=== PATIENT | male | born 1945 | race Caucasian/White ===

== ENCOUNTER 2017-05-01 11:39 | Day surgery (SDC) | payer MEDICARE ==
[~2017-05-01] VITALS: Ht 180.3 cm; Wt 120.2 kg
[~2017-05-01 11:39] MED LIST: AMLODIPINE5 MG PO; AUGMENTIN875TAB PO; CHERATUSSIN OR; EQL IBUPROFEN200 MG PO; FLUTICASONE50 MCG; HYDROCHLOROT25 MG PO; LISINOPRIL10 MG PO; TENORMIN50 MG PO; TYLENOL325 MG PO
[2017-05-01 14:34] VITALS: BP 117/61
== END 2017-05-01 15:03 | disposition home or self-care (01) ==
LOC: ENDO 11:39
PROVIDERS: ATTEND Internal Medicine Gastroenterology
PROC: 0DBL8ZX Excision of Transverse Colon, Via Natural or Artificial Opening Endoscopic, Diagnostic (ICD-10-PCS; principal; 2017-05-01)
PROC: 0DBF8ZX Excision of Right Large Intestine, Via Natural or Artificial Opening Endoscopic, Diagnostic (ICD-10-PCS; 2017-05-01)
PROC: 0DBH8ZX Excision of Cecum, Via Natural or Artificial Opening Endoscopic, Diagnostic (ICD-10-PCS; 2017-05-01)
DX: Z12.11 Encounter for screening for malignant neoplasm of colon (principal); R11.0 Nausea; K64.4 Residual hemorrhoidal skin tags; K57.30 Diverticulosis of large intestine without perforation or abscess without bleeding; K64.8 Other hemorrhoids; D12.3 Benign neoplasm of transverse colon; D12.0 Benign neoplasm of cecum; D12.2 Benign neoplasm of ascending colon; K63.5 Polyp of colon; I10 Essential (primary) hypertension

== ENCOUNTER 2017-08-14 10:07 | Day surgery (SDC) | payer MEDICARE ==
[~2017-08-14] VITALS: Ht 180.3 cm; Wt 120.2 kg
== END 2017-08-14 12:41 | disposition home or self-care (01) ==
LOC: ORM 10:07 → ENDO 10:07 → ORM 10:30
PROVIDERS: ATTEND Internal Medicine Gastroenterology
DX: R11.0 Nausea (principal); Z53.8 Procedure and treatment not carried out for other reasons

== ENCOUNTER 2018-06-25 09:33 | Day surgery (SDC) | payer MEDICARE ==
[~2018-06-25] VITALS: Ht 180.3 cm; Wt 120.2 kg
[~2018-06-25 09:33] MED LIST changes: +AMLODIPINE10 MG PO; +COZAAR100 MG PO; +[UNRECOGNIZED DRUG - OTHER]
[2018-06-25 14:19] VITALS: BP 123/58
== END 2018-06-25 14:40 | disposition home or self-care (01) ==
LOC: ENDO 09:33 → ORM 12:50 → ENDO 13:00 → ORM 20:30
PROVIDERS: ATTEND Internal Medicine Gastroenterology
PROC: 0DBN8ZX Excision of Sigmoid Colon, Via Natural or Artificial Opening Endoscopic, Diagnostic (ICD-10-PCS; principal; 2018-06-25)
PROC: 0DBH8ZX Excision of Cecum, Via Natural or Artificial Opening Endoscopic, Diagnostic (ICD-10-PCS; 2018-06-25)
DX: K57.30 Diverticulosis of large intestine without perforation or abscess without bleeding (principal); D12.0 Benign neoplasm of cecum; K63.5 Polyp of colon; K64.4 Residual hemorrhoidal skin tags; K64.8 Other hemorrhoids; I10 Essential (primary) hypertension; Z86.010 Personal history of colon polyps

== ENCOUNTER 2019-12-29 | Emergency (ER) | payer MEDICARE ==
[2019-12-29 11:54] LABS: HEMATOCRIT 45.5 % (39.0-50.0); HEMOGLOBIN 15.1 g/dl (14.0-18.0); IMMATURE GRANULOCYTES 0.4 % (0.0-5.0); MEAN CORPUSCULAR HGB 28.2 pG CALC (26.0-32.0); MEAN CORPUSCULAR HGB CONC 33.2 g/L CALC (32.0-36.0); NEUT# 7.28 thou/uL (1.82-7.42); RED BLOOD COUNT 5.35 mill/uL (4.70-6.10); RED CELL DISTRI WIDTH 13.6 % (11.5-15.5)
[2019-12-29 12:01] LABS: BUN 13 mg/dL (8-23); BUN/CREATININE RATIO 21 (12-20 (CALC)); CHLORIDE 103 mmol/l (95-108); CREATININE 0.6 mg/dL (0.7-1.3); GFR > 60 ML/MIN (>=60 (CALC)); GFR FOR AFR.AMER. > 60 ML/MIN (>=60 (CALC)); POTASSIUM 4.3 mmol/l (3.5-5.1); SODIUM 136 mmol/l (137-146)
[2019-12-29 12:05] LABS: ANION GAP 14 (6-22 (CALC)); CARBON DIOXIDE 23 mmol/l (22-30)
[2019-12-29 12:49] LABS: URINE BILIRUBIN - DIPSTICK NEGATIVE (NEGATIVE); URINE BLOOD DIPSTICK LARGE (NEGATIVE); URINE COLOR RED; URINE GLUCOSE - DIPSTICK 100 mg/dL (NEGATIVE); URINE KETONE 15 mg/dL (NEGATIVE); URINE LEUK ESTERASE MODERATE (NEGATIVE); URINE NITRITE - DIPSTICK POSITIVE (Negative); URINE PH 8.5 (4.5-8.0); URINE PROTEIN - DIPSTICK >=300 mg/dL (NEG-TRACE); URINE SPECIFIC GRAVITY 1.015
[2019-12-29 12:50] LABS: URINE BACTERIA FEW hpf; URINE EPITHELIAL CELLS FEW EPI/hpf (0-FEW); URINE RBC TNTC RBC/hpf (0-5)
== END 2019-12-29 16:40 | disposition short-term general hospital (02) ==
PROVIDERS: Family Medicine
DX: N28.89 Other specified disorders of kidney and ureter (principal); N32.89 Other specified disorders of bladder; R31.9 Hematuria, unspecified; I10 Essential (primary) hypertension; R82.71 Bacteriuria

== ENCOUNTER 2021-03-22 09:33 | Emergency (ER) | payer MEDICARE, MEDICAID ==
[~2021-03-22] VITALS: Ht 119.4 cm; Wt 115.0 kg
[2021-03-22 11:13] LABS: HEMATOCRIT 43.2 % (39.0-50.0); HEMOGLOBIN 13.8 g/dl (14.0-18.0); MEAN CELL VOLUME 84.7 fL CALC (80.0-100.0); MEAN CORPUSCULAR HGB 27.1 pG CALC (26.0-32.0); MEAN CORPUSCULAR HGB CONC 31.9 g/dL CAL (32.0-36.0); NEUT# 20.32 thou/uL (1.82-7.42); RED BLOOD COUNT 5.1 mill/uL (4.70-6.10); RED CELL DISTRI WIDTH 14.2 % (11.5-15.5)
[2021-03-22 11:24] LABS: INTERNATIONAL NORMALIZED RATIO 1.2 RATIO (0.7-1.3); PROTHROMBIN TIME 12.6 SECONDS (9.0-12.5)
[2021-03-22 11:26] LABS: ALBUMIN 3.8 g/dL (3.2-5.0); ALKALINE PHOSPHATASE 44 u/l (38-126); ANION GAP 10 (6-22 (CALC)); BILIRUBIN, TOTAL 1.3 mg/dL (0.0-1.4); BUN 26 mg/dL (8-23); BUN/CREATININE RATIO 28 (12-20 (CALC)); CARBON DIOXIDE 28 mmol/l (22-30); CHLORIDE 98 mmol/l (95-108); CREATININE 0.9 mg/dL (0.7-1.3); GFR > 60 ML/MIN (>=60 (CALC)); GFR FOR AFR.AMER. > 60 ML/MIN (>=60 (CALC)); POTASSIUM 4.9 mmol/l (3.5-5.1); SGOT/AST 39 u/l (19-48); SODIUM 131 mmol/l (137-146); TOTAL PROTEIN 7.7 g/dL (6.3-8.2)
[2021-03-22 11:38] LABS: MYOGLOBIN 88 ng/mL (0 - 121)
[2021-03-22 12:18] VITALS: BP 130/62
== END 2021-03-22 11:55 | disposition short-term general hospital (02) ==
LOC: ED 09:33
PROVIDERS: Emergency Medicine
DX: I21.9 Acute myocardial infarction, unspecified (principal); J18.9 Pneumonia, unspecified organism; I10 Essential (primary) hypertension; C64.9 Malignant neoplasm of unspecified kidney, except renal pelvis; C79.9 Secondary malignant neoplasm of unspecified site; C67.9 Malignant neoplasm of bladder, unspecified; F17.200 Nicotine dependence, unspecified, uncomplicated; Z20.822 Contact with and (suspected) exposure to COVID-19; Z79.899 Other long term (current) drug therapy

== ENCOUNTER 2021-04-04 09:51 | Inpatient (IN) | payer MEDICARE, MEDICAID ==
[~2021-04-04] VITALS: Ht 180.3 cm; Wt 108.0 kg
[2021-04-04] VITALS (14 sets, daily range): BP systolic 134–168; BP diastolic 61–83
--- NOTE | 2021-04-04 09:52 | NUR ---
PT IMMEDIATELY TO ROOM VIA MD YOMI AT BEDSIDE.
[2021-04-04 10:30] LABS: HEMATOCRIT 44.8 % (39.0-50.0); HEMOGLOBIN 14.7 g/dl (14.0-18.0); IMMATURE GRANULOCYTES 0.3 % (0.0-5.0); MEAN CORPUSCULAR HGB 27.2 pG CALC (26.0-32.0); MEAN CORPUSCULAR HGB CONC 32.8 g/dL CAL (32.0-36.0); NEUT# 12.12 thou/uL (1.82-7.42); RED BLOOD COUNT 5.4 mill/uL (4.70-6.10); RED CELL DISTRI WIDTH 14.3 % (11.5-15.5)
[2021-04-04 10:39] LABS: INTERNATIONAL NORMALIZED RATIO 1.2 RATIO (0.7-1.3)
[2021-04-04 10:40] LABS: ALBUMIN 3.7 g/dL (3.2-5.0); ANION GAP 13 (6-22 (CALC)); BUN 10 mg/dL (8-23); BUN/CREATININE RATIO 17 (12-20 (CALC)); CARBON DIOXIDE 28 mmol/l (22-30); CHLORIDE 98 mmol/l (95-108); CREATININE 0.6 mg/dL (0.7-1.3); GFR > 60 ML/MIN (>=60 (CALC)); GFR FOR AFR.AMER. > 60 ML/MIN (>=60 (CALC)); POTASSIUM 4.2 mmol/l (3.5-5.1); SGOT/AST 32 u/l (19-48); SODIUM 135 mmol/l (137-146); TOTAL PROTEIN 7.7 g/dL (6.3-8.2)
[2021-04-04 10:42] LABS: ALKALINE PHOSPHATASE 72 u/l (38-126)
--- NOTE | 2021-04-04 10:48 | NUR ---
RESTING ON STRETCHER. CALL DAWSON WITHIN REACH
[2021-04-04 11:38] LABS: URINE BILIRUBIN - DIPSTICK NEGATIVE (NEGATIVE); URINE BLOOD DIPSTICK NEGATIVE (NEGATIVE); URINE COLOR YELLOW; URINE GLUCOSE - DIPSTICK NEGATIVE (NEGATIVE); URINE KETONE NEGATIVE (NEGATIVE); URINE LEUK ESTERASE NEGATIVE (NEGATIVE); URINE PROTEIN - DIPSTICK NEGATIVE (NEG-TRACE); URINE SPECIFIC GRAVITY 1.015; URINE UROBILINOGEN - DIPSTICK 0.2 E.U./dL (0.2)
[2021-04-04 11:39] LABS: URINE NITRITE - DIPSTICK NEGATIVE (Negative)
--- NOTE | 2021-04-04 11:47 | NUR ---
RESTING ON STRETCHER. VOIDED 675ML TOTAL IN URINAL
[2021-04-04] MEDS ORDERED: DIGOXIN0.125 MG PO (12:27)
[2021-04-04] MEDS ORDERED: TAMSULOSIN HCL0.4 MG PO (12:28)
[2021-04-04] MEDS ORDERED: LOPRESSOR25 MG PO (12:28)
[2021-04-04] MEDS ORDERED: FUROSEMIDE20 MG PO (12:28)
[2021-04-04] MEDS ORDERED: DILT-XR180 MG PO (12:28)
--- NOTE | 2021-04-04 12:47 | NUR ---
RESTING ON STRETCHER. CALL DAWSON WITHIN REACH
--- NOTE | 2021-04-04 13:45 | NUR ---
S:EDGARDO RAMON is a 75 M who presents with SOB, cough, productive of green sputum. He has a history of CHF exacerbation, pneumonia, COPD exacerbation, Atrial fibrillatoin with RVR. All medications in patient's chart were reviewed. O: VS: BP 145/80 mmHg, P 134 bpm, RR 32 bpm, T 97.6 F W 113.6 kg, HT180.34 cm, Scr= 1 mL/min, CrCl= 99.4 ml/min A: Blood culture is pending. P: Patient is on Zosyn 4.5 g IV Q6H. Vancomycin ordered for pharmacy to dose. Start Vancomycin <1250 mg IV Q8H. Vancomycin trough is drawn before the 4th dose on 04/05/21 @1200. Vancomycin goal trough is between 15-20 mcg/ml. Pharmacy will follow and or advise on antibiotics use as needed.
--- NOTE | 2021-04-04 13:45 | NUR ---
AWAITING ROOM ASSIGNMENT. RESTING ON STRETCHER.
--- NOTE | 2021-04-04 13:55 | NUR ---
REPORT CALLED TO ANJALI DOWNEY
--- NOTE | 2021-04-04 14:00 | NUR ---
PT TRANSPORTED TO FLOOR IN STABLE CONDITION WITH RN ON GATEMAN
--- NOTE | 2021-04-04 14:00 | NUR ---
ARRIVED FROM THE ER VIA WHEELCHAIR. INTO BED WITH ASST OF THREE. DRIP RATE AT 10/H. VS 146/88 PL 114 97% 5L NC RESP 28 TEMP 98. AXOX3. DENIES ANY PAIN AT THIS TIME. NOTED PRODUCTIVE WET COUGH YELLOW IN COLOR. NOTED EDEMA TO BI-LAT LOWER EXTREMITIES. EDUCATED PHYSICAL CHEMIST SYSTEM BED AND TV. REPOSITIOEND FOR COMFORT, SIDE RAILS UP CALL LIGHT IN REACH, BED LOCKED IN LOW POSITION. ALL SAFTY MEASURES IN PLACE. WILL CONTINUE TO MONIOTR THE PATIENT.
--- NOTE | 2021-04-04 14:30 | NUR ---
PT GIVEN SUCTION TO HELP WITH HIS SECREATIONS. NO DISTRESS NOTED AT THIS TIME. CALL LIGHT IN REACH. WILL CONTINUE TO MONIOTR THE PATIENT.
--- NOTE | 2021-04-04 15:15 | NUR ---
pt recieved in icu via er on o2 self propelled mining machine operator placed in er as per abg results. 3lpm. pt resting comfortably in bed at this time. no acute distress noted. self propelled mining machine operator to monitor.
--- NOTE | 2021-04-04 16:12 | NUR ---
PT RESTING COMOFRTABLE VOIDING CLEAR YELLOW URINE. NOTED NO SOB AT THIS TIME. DENIES PAIN. WILL CONTINUE TO MONIOTR THE PATIENT.
--- NOTE | 2021-04-04 17:00 | NUR ---
HYGENE CARE GIVEN. NO DITRESS NOTED AT THIS TIME. WILL CONTINUE TO MONIOTR THE PATIENT.
--- NOTE | 2021-04-04 17:58 | NUR ---
COMPLETE HYGINE CARE GIVEN . NOTED HR RUNNING 118. PT NOT IN ANY DISTRESS AT THIS TIME. WILL CONTIUE OT MONIOTR THE PATIENT.
--- NOTE | 2021-04-04 19:30 | NUR ---
REPORT GIVEN BY SAHYAN. PATIENT IN BED WATCHING TV. RESP EVEN AND UNLABORED, 3L VIA NC IN PLACE. FALL AND SAFTEY PRECAUTIONS IN PLACE. IV INFUSING CARDIZEM. PLAN OF CARE DISCUSSED. PATIENT INFORMED TO CALL WITH ANY QUESTIONS OR CONCERNS.
--- NOTE | 2021-04-04 21:00 | NUR ---
PATIENT CALLED NURSES STATION STATING HE WAS UNABLE TO BREATHE. RESP LABORED AND SHALLOW, 3L VIA NC IN PLACE. O2 SAT 90%, O2 TURNED UP 5L FOR PATIENT COMFORT. PATIENT CONTIUNES TO SIT UP AT THE BEDSIDE TO CATCH BREATH. PATIENT EDUCATED ON PURSED LIPPED BREATHING.
--- NOTE | 2021-04-04 21:43 | NUR ---
PATIENT SITTING UP AT THE BEDSIDE. RESP EVEN AND UNLABORED. NO S/S OF DISTRESS NOTED. FALL AND SAFTEY PRECAUTIONS IN PLACE
[2021-04-05] VITALS (20 sets, daily range): BP systolic 125–187; BP diastolic 58–103
--- NOTE | 2021-04-05 00:11 | NUR ---
midnight abx started per md orders
--- NOTE | 2021-04-05 02:12 | NUR ---
PATIENT RESTING WITH EYES CLOSED. RESP EVEN AND UNLABORED. NO S/S OF DISTRESS NOTED.
--- NOTE | 2021-04-05 03:43 | NUR ---
PATIENT WOKE UP CONFUSED. HE REMOVED HIS IV SITE, GOWN, TELE, WRIST BAND, PULSE OX AND OXYGEN. NEW GOWN PLACED ON PATIENT. CLEAN LINENS PLACED ON BED. PATIENT REORIENTED TO ROOM, TIME, AND PLACE. PATIENT PLACED BACK ON MONITOR. FALL AND SAFTEY PRECAUTIONS IN PLACE.
[2021-04-05 06:31] LABS: HEMOGLOBIN 13.7 g/dl (14.0-18.0); MEAN CELL VOLUME 84.2 fL CALC (80.0-100.0); MEAN CORPUSCULAR HGB 27.5 pG CALC (26.0-32.0); MEAN CORPUSCULAR HGB CONC 32.6 g/dL CAL (32.0-36.0); RED BLOOD COUNT 4.99 mill/uL (4.70-6.10); RED CELL DISTRI WIDTH 14.2 % (11.5-15.5)
[2021-04-05 06:49] LABS: ANION GAP 11 (6-22 (CALC)); BUN 15 mg/dL (8-23); BUN/CREATININE RATIO 24 (12-20 (CALC)); CALCULATED LDLCHOLESTEROL 96 mg/dL (62-129 (CALC)); CARBON DIOXIDE 29 mmol/l (22-30); CHLORIDE 102 mmol/l (95-108); CHOLESTEROL HDL RATIO 3.9 (<4.4 (CALC)); CREATININE 0.6 mg/dL (0.7-1.3); GFR > 60 ML/MIN (>=60 (CALC)); GFR FOR AFR.AMER. > 60 ML/MIN (>=60 (CALC)); HDL CHOLESTEROL 38 mg/dL (>=40); MAGNESIUM 2.3 mg/dL (1.6-2.3); POTASSIUM 4.1 mmol/l (3.5-5.1); SODIUM 137 mmol/l (137-146); TOTAL CHOLESTEROL 151 mg/dl (0-199); TOTAL TRIGLYCERIDES 82 mg/dl (30-149); VLDL CHOLESTROL 16 mg/dl (0-38 (CALC))
--- NOTE | 2021-04-05 07:06 | NUR ---
PT C NAD. SPEAKING IN FULL SENTENCES. ON 5LPM NC C SPO2 =95. SOME PITTED EDEMA NOTED BILATERALLY. RN IN ROOM C PT. WATER PLANT OPERATOR TO MONITOR.
--- NOTE | 2021-04-05 07:15 | NUR ---
pt awake sitting on the side of the bed; no apparent distress noted; pt offers no complaints; assessment completed at this time; pt alert and oriented; interm confusion noted; pt denies pain/ discomfort; no n/v noted per credit underwriter; resp even and unlabored; lungs clear/ diminished bases; skin color wnl; o2 per nc at 5: moist loose cough noted; pt noted with self suctioning setup at bedside; hr irreg; wk pedal pulses; 2+ edema noted to ble; afib 110s on monitor; abd soft/ distended with bs present; no bm noted per credit underwriter; pt assisted to standing position per this credit underwriter to urinate; pt urinated on floor/ missed urinal; pericare/ gown changed per credit underwriter; no accidently dislodged IV approx 0630 this am per manager night; edema noted to rfa; arm cleansed of old blood; credit underwriter unable to establish iv access at this time; plan of care/ am meds explained; pt requires much assistance/ guidance; call light within reach; will continue to monitor
--- NOTE | 2021-04-05 08:17 | NUR ---
awake sitting on the side of the bed eating breakfast; Mahad Rebolledo RN present at bedside for iv access; #22 started to lat lac x1 attempt; flushed and patent; no redness or edema noted at site; call [facility] within reach; will continue to monitor
--- NOTE | 2021-04-05 08:45 | NUR ---
Dr Matt present at bedside to assess pt and discuss plan of care
--- NOTE | 2021-04-05 09:13 | NUR ---
PT present at bedside for screening
--- NOTE | 2021-04-05 09:40 | NUR ---
Patient screened for PT services, recommend initiating PT services.
--- NOTE | 2021-04-05 10:35 | NUR ---
PT Gerar present at bedside to assess pt
--- NOTE | 2021-04-05 12:07 | NUR ---
solder making laborer at bedside
--- NOTE | 2021-04-05 12:19 | NUR ---
awake in bed; pt self suctioning as needed; thick yellow sputum noted; iv intact and patent; abt infusing without complication; afib on monitor; rate controlled; call light within reach; will continue to monitor
--- NOTE | 2021-04-05 13:20 | NUR ---
assisted to bsc for urination; pt offers no complaints; no bm noted; pt offered stool softner or laxative and pt refused both; patient informed to notify staff if laxative is needed; iv patent; will continue to monitor
--- NOTE | 2021-04-05 14:09 | NUR ---
S: EDGARDO RAMON is a 75 M who presents with pneumonia/copd exacerbation. He has a history of COPD, CHF exacerbation, atrial fibrillation with RVR. All medications in patient's chart were reviewed. O: VS: BP 139/60 mmHg, P 108bpm, RR 26 bpm, T 97 F W 114 kg, HT 180.34 cm, Scr= 0.6 mL/min,CrCl= 79.4 ml/min Vancomycin trough=10 A: Preliminary Blood cultures show no growth after 24 hours. Vancomycin trough slightly subtherapeutic, however increase in trough expected. P: Patient is on Zosyn 4.5 g IV Q6H. Vancomycin ordered for pharmacy to dose. Continue Vancomycin 1250 mg IV Q8H. Vancomycin trough is to be rechecked on 04/06/21 @1200. Vancomycin goal trough is between 15-20 mcg/ml. Pharmacy will follow and or advise on antibiotics use as needed.
--- NOTE | 2021-04-05 14:15 | NUR ---
awake in bed; iv intact and patent; afib/flutter on monitor; o2 per nc; call light within reach; will continue to monitor
--- NOTE | 2021-04-05 16:10 | NUR ---
awake; assist to bsc; voiding without complication; afib on monitor; o2 per nc; pt offers no complaints; iv intact; call light within reach; will continue to monitor
--- NOTE | 2021-04-05 17:57 | NUR ---
awake sitting on the side of the bed; no apparent distress noted; pt offers no complaints; iv intact; o2 per nc; afib on the monitor; assistance to bedside offered; oral intake vs diuretics explained; explained to pt inportance of fluid restriction; call light within reach; will continue to monitor
--- NOTE | 2021-04-05 20:00 | NUR ---
RESTING IN BED. RESP NON-LABORED AT REST. USING O2 AT 5 L NC. BREATH SOUNDS ESSENTIALLLY CLEAR, DIMINISHED IN THE BASES. 3+ PITTING EDEMA OF BLE. WEAKLY PALPABLE PEDAL PULSES. SALINE LOCK INTACT IN LAC, SITE BENIGN. CRACK OFF PERSON SHOWS AFIB, HR 100-110'S. DISCUSSED PLAN OF CARE. DENIES NEEDS AT THIS TIME. CALL DAWSON IN REACH.
--- NOTE | 2021-04-05 22:00 | NUR ---
VSS. AFIB ON MONITOR. RESTING WITHOUT COMPLAINTS.
[2021-04-06] VITALS (15 sets, daily range): BP systolic 110–150; BP diastolic 56–91
--- NOTE | 2021-04-06 | NUR ---
ASSISTED PATIENT UP TO BSC. VOIDED LARGE AMOUNT CLEAR DARK YELLOW URINE. PATIENT MOVES WELL WITH MINIMAL ASSIST. VSS. AFEBRILE. AFIB/FLUTTER ON MONITOR.
--- NOTE | 2021-04-06 02:00 | NUR ---
RESTING IN BED WITH EYES CLOSED. RESP NON-LABORED AT REST. VSS. AFIB/FL ON MONITOR.
--- NOTE | 2021-04-06 03:30 | NUR ---
PATIENT AWAKE, SITTING A SIDE OF BED. PATIENT STATES HE IS SICK OF LYING IN BED, OFFERED TO ASSIST PATIENT UP TO RECLINER AND HE DECLINED.
--- NOTE | 2021-04-06 04:02 | NUR ---
CONTINUES TO SIT AT SIDE OF BED. VSS. RESP NON-LABORED. AFIB/FLUTTER MONITOR.
--- NOTE | 2021-04-06 04:16 | NUR ---
ASSISTED UPTO BSC TO VOID. DYSPNEIC WITH EXERTION BUT ABLE TO MAINTAIN O2 SAT 90-91% WITH ACTIVITY.
--- NOTE | 2021-04-06 06:00 | NUR ---
SLEPT FOR SHORT INTERVALS DURING THE NIGHT. VSS. NO COMPLAINTS VOICED.
--- NOTE | 2021-04-06 06:29 | NUR ---
pt c tor. rn in room c pt at this time. vss. pt speaking in full clear sentences. land leasing information clerk to monitor.
--- NOTE | 2021-04-06 07:35 | NUR ---
pt awake sitting on the side of the bed; no apparent distress noted; pt offers no complaints at this time; assessment completed; pt alert and oriented; denies pain; no n/v noted; resp even and unlabored; lungs clear/ diminished bases; skin color wnl; o2 per nc at 5L; loose productive cough of yellow sputum noted; hr irreg; weak pedal pulses; 3+ edema noted to ble; afib on monitor; abd firm/distended with bs present; no bm noted per production underwriter; again, laxative offered and declined; pt voiding clear yellow urine without complication; bsc; #22 flushed and patent to lac; no redness or edema noted at site; plan of care/ am meds explained; call light within reach; will continue to monitor
--- NOTE | 2021-04-06 08:00 | NUR ---
awake sitting on the side of the bed; refused breakfast; laxative offered and accepted; Joce Beard RN to be notified; will continue to monitor
--- NOTE | 2021-04-06 08:50 | NUR ---
Dr Matt present at bedside to assess pt and discuss plan of care
--- NOTE | 2021-04-06 09:30 | NUR ---
call placed to brother Lee Andrea as per pt request; phone given to pt
--- NOTE | 2021-04-06 10:09 | NUR ---
pt up to bsc per self; safty/fal precautions explained; iv intact; afib on monitor; o2 per nc/ titrated to 4L; call light within reach; will continue to monitor
--- NOTE | 2021-04-06 12:09 | NUR ---
awake in bed; declined lunch d/t "receiving laxative"; no bm noted at this time; bsc changed as per pt request; [facility] for specimen; o2 per nc; afib on monitor; call light within reach; will continue to monitor
--- NOTE | 2021-04-06 13:52 | NUR ---
PT PRESENTS WITH PNEUMONIA. VANCO ORDERED FOR PHARMACY TO DOSE. PT IS ALSO ON ZOSYN 4.5G IV Q6H. PT HAS BEEN RECEIVING VANCOMYCIN 1250MG IV Q8H. TROUGH TODAY @ 1200 = 17 MCG/ML. GOAL TROUGH = 15-20 MCG/ML. PT KIDNEY FUNCTION REMAINS UNCHANGED; SCR = 0.6 (1) MG/DL, CRCL = 99.4 ML/MIN. BLOOD CX PENDING. CONTINUE AT CURRENT DOSE. WILL RE-CHECK TROUGH TOMORROW @ 1200. PHARMACY WILL CONTINUE TO FOLLOW.
--- NOTE | 2021-04-06 14:00 | NUR ---
awake; offers no complaints; iv intact; afib on monitor; will continue to monitor
--- NOTE | 2021-04-06 15:39 | NUR ---
Patient did gait training with CGA x 1 covering 5 feet x 2 reps with patient exhibit slouching posture and slow tereso, required verbal and occasional tactile cuing to help decrease fall risks. Patient also did log rolling bed mobility and sit to stand push off transfers for 3 reps with occasional verbal and tactile cuing to help decrease trick movements and fall risks (CGA X 1). Patient did B LE AROM exercises doing knee extension, hip flexion, hip adduction, hip abduction, hamstring curls, gluteal squeezes, and ankle AROM for 15 reps x 2 sets with occasional rest breaks due to SOB, needing occasional verbal and tactile cuing.
--- NOTE | 2021-04-06 16:20 | NUR ---
resting in bed with eyes closed; no apparent distress noted; iv intact; o2 per nc; afib/flutter on monitor; call light within reach; will continue to monitor
--- NOTE | 2021-04-06 18:00 | NUR ---
awake in bed; offers no complaints; iv intact; afib on monitor; o2 per nc; call light within reach
--- NOTE | 2021-04-06 19:25 | NUR ---
RESTING IN BED WITH EYES CLOSED. AWAKENS TO NAME. RESP NON-LABORED. USING O2 AT 4 L NC, O2 SAT 97% BREATH SOUNDS CLEAR IN UPPER LOBES, DIMINISHED IN BILATERAL BASES. 3+ PITTING EDEMA OF BLE, PERIPHERAL PULSES PALPABLE. SALINE LOCK INTACT IN LAC, SITE BNEIGN, FLUSHED AND PATENT. WIDTH STRIPPER SHOWS AFIB/FLUTTER. DISCUSSED PLAN OF CARE. DENIES NEEDS AT THIS TIME. CALL DAWSON IN REACH.
--- NOTE | 2021-04-06 22:00 | NUR ---
RESTING IN BED WITH EYES CLSOED. RESP NON-LABORED. VSS.
--- NOTE | 2021-04-06 23:55 | NUR ---
RESTING WITH EYES CLOSED. AWAKENS TO NAME. RESP NON-LABORED. VSS. AFEBRILE.
[2021-04-07] VITALS (11 sets, daily range): BP systolic 114–168; BP diastolic 56–79
--- NOTE | 2021-04-07 02:00 | NUR ---
SLEEPING. VSS. NO CHANGES TO REPORT.
--- NOTE | 2021-04-07 04:00 | NUR ---
NO CHANGES TO REPORT. VSS. RESP NON-LABORED. MONITOR AFIB/FLUTTER.
[2021-04-07 05:28] LABS: HEMATOCRIT 41.6 % (39.0-50.0); HEMOGLOBIN 13.1 g/dl (14.0-18.0); IMMATURE GRANULOCYTES 0.3 % (0.0-5.0); MEAN CORPUSCULAR HGB 27.1 pG CALC (26.0-32.0); MEAN CORPUSCULAR HGB CONC 31.5 g/dL CAL (32.0-36.0); NEUT# 15.13 thou/uL (1.82-7.42); RED BLOOD COUNT 4.84 mill/uL (4.70-6.10); RED CELL DISTRI WIDTH 14.4 % (11.5-15.5)
[2021-04-07 05:35] LABS: ANION GAP 11 (6-22 (CALC)); BUN 18 mg/dL (8-23); BUN/CREATININE RATIO 28 (12-20 (CALC)); CARBON DIOXIDE 33 mmol/l (22-30); CHLORIDE 99 mmol/l (95-108); CREATININE 0.6 mg/dL (0.7-1.3); GFR > 60 ML/MIN (>=60 (CALC)); GFR FOR AFR.AMER. > 60 ML/MIN (>=60 (CALC)); MAGNESIUM 2.5 mg/dL (1.6-2.3); POTASSIUM 3.7 mmol/l (3.5-5.1); SODIUM 139 mmol/l (137-146)
--- NOTE | 2021-04-07 05:45 | NUR ---
PATIENT AWAKE ON ROUNDS, STATES HE SLEPT WELL. VSS. MONITOR AFIB/FLUTTER. SALINE LOCK IN LAC FLUSHED AND PATENT. VOIDS CLEAR MARITZA URINE ON BSC.
--- NOTE | 2021-04-07 07:25 | NUR ---
pt awake in bed; no apparent distress noted; pt offers no complaints; assessment completed at this time; pt alert and oriented; denies pain; no n/v noted; resp even and unlabored; lungs clear; skin color wnl; o2 per nc at 3L; loose productive cough noted; hr irreg; wk pedal pulses; 1+ edema noted at bilat le; afib/ flutter on the monitor; abd distended with bs present; no bm noted per creative services writer; pt voiding in bsc without complication; #22 saline locked to lac; no redness or edema noted at site; plan of care/ am meds explained; call light within reach; will continue to monitor
--- NOTE | 2021-04-07 08:19 | NUR ---
awake sitting on the side of the bed; offers no complaints; eating breakfast (pancakes ordered as per pt request); afib on monitor; call light within reach; will continue to monitor
--- NOTE | 2021-04-07 08:53 | NUR ---
lg loose bm noted; pericare per pt; reclined offered and declined; will continue to monitor
--- NOTE | 2021-04-07 09:53 | NUR ---
Dr Matt present at bedside to assess pt and discuss plan of care
--- NOTE | 2021-04-07 10:18 | NUR ---
assisted to recliner; pt tolerated activity well; afib 110s on the monitor; iv intact; o2 per nc; call light within reach; will continue to monitor
--- NOTE | 2021-04-07 10:49 | NUR ---
complete asssited bath and linens completed
--- NOTE | 2021-04-07 12:03 | NUR ---
pt awake in recliner; eating lunch; laboratory cureman at bedside; pt offers no complaints; aflutter on the monitor; bsc; call light within reach; will continue to monitor
--- NOTE | 2021-04-07 13:26 | NUR ---
S: EDGARDO RAMON is a 75 M who presents with pneumonia. All medications in patient's chart were reviewed. O: W 111 kg, HT 71 in, Scr 1 mg/dl, CrCl 99.4 ml/min, Trough 18 mcg/ml A: Cultures pending. P: Patient is on Zosyn 4.5g IV q6h. Vancomycin ordered for pharmacy to dose. 04/09 @ 1200. Vancomycin goal trough is between 15-20 mcg/ml. Pharmacy will follow and or advise on antibiotics use as needed.
--- NOTE | 2021-04-07 14:09 | NUR ---
awake in recliner; assited to bsc for mod loose bm; assisted with pericare; iv intact and patent; vanco infusing without complication; o2 per nc; call light within reach; will continue to monitor
--- NOTE | 2021-04-07 16:07 | NUR ---
pt awake in recliner; no apparent distress noted; pt offers no complaints; iv re-inforced; flushed and patent; no redness or edema noted at site; afib/flutter noted on monitor; o2 per nc; call light within reach; will continue to monitor
--- NOTE | 2021-04-07 18:06 | NUR ---
awake in recliner; no apparent distress noted; offers no complaints; iv intact and patent; aflutter on monitor; call light within reach
--- NOTE | 2021-04-07 19:30 | NUR ---
SITTING UP IN RECLINER. RESP NON-LABORED AT REST. USING O2 AT 3 L NC. BREATH SOUNDS CLEAR IN UPPER LOBES AND DIMINISHED IN BILATERAL BASES. 2+ PITTING EDEMA OF BLE. FEET IN DEPENDENT POSITION, ENCOURAGED PATIENT TO ELEVATE LEGS WHILE UP IN CHAIR. SALINE LOCK IN LAC, SITE BNEIGN, FLUSHED AND PATENT. DISCUSSED PLAN OF CARE. DENIES NEEDS AT THIS TIME. CALL DAWSON IN REACH.
--- NOTE | 2021-04-07 22:00 | NUR ---
UP TO BSC WITH MINIMAL ASSIST. VOIDS CLEAR YELLOW URINE. VSS. RESP NON-LABORED. O2 DECERASED TO 2 L NC.
[2021-04-08] VITALS (11 sets, daily range): BP systolic 110–177; BP diastolic 58–81
--- NOTE | 2021-04-08 00:05 | NUR ---
PATIENT REMAINS UP IN RECLINER WITH LEGS ELEVATED. PATIENT STATES HE PREFERS TO SLEEP IN RELCINER TONIGHT. VSS. AFIB/FLUTTER ON MONITOR.
--- NOTE | 2021-04-08 02:00 | NUR ---
ASLEEP N RECLINER. INN NO APPARENT DISTRESS. VSS.
--- NOTE | 2021-04-08 04:00 | NUR ---
AWAKE ON ROUNDS. NO COMPLAINTS VOICED. VSS. AFIB/FLUTTER ON MONITOR. RESTING IN RECLINER WITH LEGS IN DEPENDENT POSITON, INCREASE NOTED IN PEDAL EDEMA. ENCOURAGED TO REST WITH LEGS ELEVATED WHILE UP IN CHAIR.
[2021-04-08 05:30] LABS: HEMATOCRIT 42.2 % (39.0-50.0); HEMOGLOBIN 13.5 g/dl (14.0-18.0); IMMATURE GRANULOCYTES 0.3 % (0.0-5.0); MEAN CELL VOLUME 85.6 fL CALC (80.0-100.0); MEAN CORPUSCULAR HGB 27.4 pG CALC (26.0-32.0); NEUT# 10.65 thou/uL (1.82-7.42); RED BLOOD COUNT 4.93 mill/uL (4.70-6.10); RED CELL DISTRI WIDTH 14.1 % (11.5-15.5)
[2021-04-08 05:50] LABS: ANION GAP 11 (6-22 (CALC)); BUN 19 mg/dL (8-23); BUN/CREATININE RATIO 29 (12-20 (CALC)); CARBON DIOXIDE 33 mmol/l (22-30); CHLORIDE 97 mmol/l (95-108); CREATININE 0.7 mg/dL (0.7-1.3); GFR > 60 ML/MIN (>=60 (CALC)); GFR FOR AFR.AMER. > 60 ML/MIN (>=60 (CALC)); MAGNESIUM 2.4 mg/dL (1.6-2.3); POTASSIUM 3.4 mmol/l (3.5-5.1); SODIUM 137 mmol/l (137-146)
--- NOTE | 2021-04-08 05:54 | NUR ---
NO CHANGES TO REPORT. O2 SATS HAVE BEEN >94%, O2 DECERASED TO 1 L NC. RESP NON-LABORED. SALINE LOCK MAINTAINED IN LAC, SITE SECURED WITH COBAN, FLUSHED AND PATENT FOR INTERMITTENT IVAB INFUSIONS.
--- NOTE | 2021-04-08 06:45 | NUR ---
REPORT RECEIVED FROM ANNA ALBA. CARE ASSUMED.
--- NOTE | 2021-04-08 07:00 | NUR ---
PT SITTING UP IN RECLINER AT BEDSIDE. PT IS ALERT AND ORIENTED X3. SHIFT ASSESSMENT COMPLETED AT THIS TIME. IV PATENT X1. CALL LIGHT IN REACH. WILL CONTINUE TO MONITOR.
--- NOTE | 2021-04-08 08:54 | NUR ---
DR SIEGEL AT BEDSIDE AT THIS TIME.
--- NOTE | 2021-04-08 10:00 | NUR ---
PT SEATED UP IN RECLINER AT THIS TIME. RESP ARE EVEN AND UNLABORED. NO DISTRESS NOTED. CALL LIGHT IN REACH. WILL CONTINUE TO MONITOR.
--- NOTE | 2021-04-08 12:13 | NUR ---
ARTURO BRUMFIELD APRN AT BEDSIDE AT THIS TIME.
--- NOTE | 2021-04-08 13:21 | NUR ---
PHYSICAL THERAPY AT BEDSIDE AT THIS TIME.
--- NOTE | 2021-04-08 15:38 | NUR ---
PT SITTING UP IN RECLINER CONVERSING ON PHONE. RESP ARE EVEN AND UNLABORED. NO DISTRESS NOTED. CALL LIGHT IN REACH. WILL CONTINUE TO MONTIOR.
--- NOTE | 2021-04-08 16:18 | NUR ---
PHONED MEDSURG INFO GIVEN FOR TRANSFER ISHAAN WILL CALL BACK WITH BED ASSIGNMENT
--- NOTE | 2021-04-08 16:50 | NUR ---
PHONED MED SURG TO GET BED ASSIGNMENT ROOM WILL BE 269 NURSE WILL BE DARREN. WILL CALL FOR REPORT.
--- NOTE | 2021-04-08 17:28 | NUR ---
PT SLEEPIG IN SEMI FOWLERS POSITION. RESPIRATIONS ARE EVEN AND UNLABORED. TELE MONITORING IN PLACE. NO SIGNS OF ANY NEEDS AT THIS TIME. ALL SAFETY PRECAUTIONS ARE IN PLACE. WILL CONTINUE TO MONITOR.
--- NOTE | 2021-04-08 17:58 | NUR ---
PT SITTING UP IN RECLINER EATING PM MEAL. CALL LIGHT IN REACH. WILL CONTINUE TO MONITOR
--- NOTE | 2021-04-08 19:00 | NUR ---
REPORT GIVEN TO MARIXA ON M/S.
--- NOTE | 2021-04-08 19:15 | NUR ---
PATIENT TRANSFERRED TO M/S ROOM 268 VIA W/C WITH BELONGINGS.
--- NOTE | 2021-04-08 20:00 | NUR ---
PHYSICAL ASSESMENT COMPLETE. PT CURRENTLY DENIES PAIN OR DISCOMFORT. SCHEDULED MEDICATIONS AND PRN MEDICATION ADMINISTERED, SEE E-MAR. PT DENIES ANY NEEDS AT THIS TIME. PLAN OF CARE REVIEWED, PT DENIES QUESTIONS, VERBALIZES UNDERSTANDING. ITEMS WITHIN REACH, BED LOCKED IN LOW POSITION W/ BEDRAILS UP X2. CALL DAWSON WITHIN REACH, AGREES TO CALL PRN.
--- NOTE | 2021-04-08 20:08 | NUR ---
PT note Patient is seen for standing and mini squats as well as ambulation in room x 15 feet with vitls stable. He required mod assist for transfers to stand. He wishes to go home with home health upon DC. His Am Pac score is 14 indicating he would do well with home health follow up
[2021-04-09] VITALS: BP 154/71
--- NOTE | 2021-04-09 00:32 | NUR ---
PT LAYING IN BED WITH EYES CLOSED, APPEARS TO BE SLEEPING, APPEARS COMFORTABLE AND IN NO DISTRESS. RESPIRATIONS REGULAR AND UNLABORED. ITEMS REMAIN WITHIN REACH, CALL DAWSON REMAINS WITHIN REACH. BED REMAINS LOCKED AND IN LOW POSITION WITH BEDRAILS UP X2. WILL CONTINUE TO MONITOR.
[2021-04-09 04:00] VITALS: BP 153/65
--- NOTE | 2021-04-09 04:00 | NUR ---
PT RESTING IN RECLINER, NO SIGNS OF DISTRESS NOTED, RESP EVEN AND UNLABORED. PT VOICES NO NEEDS OR COMPLAINTS AT THIS TIME. CALL LIGHT IN REACH, CONTINUE TO MONITOR.
[2021-04-09 06:34] LABS: HEMATOCRIT 44.3 % (39.0-50.0); HEMOGLOBIN 14.2 g/dl (14.0-18.0); MEAN CELL VOLUME 83.6 fL CALC (80.0-100.0); MEAN CORPUSCULAR HGB 26.8 pG CALC (26.0-32.0); MEAN CORPUSCULAR HGB CONC 32.1 g/dL CAL (32.0-36.0); RED BLOOD COUNT 5.3 mill/uL (4.70-6.10)
[2021-04-09 06:56] LABS: ANION GAP 13 (6-22 (CALC)); BUN 19 mg/dL (8-23); BUN/CREATININE RATIO 23 (12-20 (CALC)); CARBON DIOXIDE 34 mmol/l (22-30); CHLORIDE 96 mmol/l (95-108); CREATININE 0.8 mg/dL (0.7-1.3); GFR > 60 ML/MIN (>=60 (CALC)); GFR FOR AFR.AMER. > 60 ML/MIN (>=60 (CALC)); MAGNESIUM 2.4 mg/dL (1.6-2.3); POTASSIUM 3.7 mmol/l (3.5-5.1); SODIUM 139 mmol/l (137-146)
[2021-04-09 06:57] LABS: DIGOXIN < 0.4 ng/mL (0.8-2.0)
--- NOTE | 2021-04-09 07:15 | NUR ---
REPORT RECEIVED FROM ANJALI CALVIN
[2021-04-09 09:17] VITALS: BP 138/56
--- NOTE | 2021-04-09 09:20 | NUR ---
PT OOB RESTING IN RECLINER,A&O X3;VS OBTAINED AND ASSESSMENT COMPLETED;PT DENIES ANY CURRENT PAIN OR DISCOMFORTS,PAIN SCALE AND REPORTING EDUCATED;RESPIRATIONS EVEN AND UNLABORED ON RA;ABDOMEN SOFT ON PALPATION AND ACTIVE IN ALL 4 QUADRANTS;WEAK PEDAL PULSES WITH +2 BLE,ENCOURAGED ELEVATION OF BLE;SKIN INTACT;TELE MONITORING IN PLACE;#22G STARTED TO RH ON 1ST ATTEMPT BY THIS WRITTER;PT DENIES ANY ADDITIONAL NEEDS;ENCOURAGED TO CALL FOR ASSISTANCE IF NEEDED;FALL PRECAUTIONS IN PLACE WITH CALL LIGHT IN REACH;WILL CONTINUE TO MONITOR
--- NOTE | 2021-04-09 10:28 | NUR ---
AT BEDSIDE DISCUSSING POC.
--- NOTE | 2021-04-09 11:34 | NUR ---
LAB AT BEDSIDE
--- NOTE | 2021-04-09 12:10 | NUR ---
PT OOB RESTING IN RECLINER;RESPIRATIONS EVEN AND UNLABORED ON RA;PT DENIES ANY CURRENT PAIN OR DISCOMFROTS;IV SITE PATENT;TELE MONITORING IN PLACE;PT DENIES ANY ADDITIONAL NEEDS;ENCOURAGED TO CALL FOR ASSISTANCE IF NEEDED;FALL PRECAUTIONS IN PLACE WITH CALL LIGHT IN REACH;WILL CONTINUE TO MONITOR
[2021-04-09 12:12] VITALS: BP 109/58
--- NOTE | 2021-04-09 14:05 | NUR ---
S: EDGARDO RAMON is a 75 M who presents with pneumonia. He has a history of HTN, hernia, cholesterol. All medications in patient's chart were reviewed. O: VS: BP 109/58 mmHg, P 81 bpm,RR 18 bpm, T 97.2 F W 108 kg, HT 71 IN, Scr= 0.8, CrCl= 99.4 ml/min Vancomycin Trough = 24 A: Trough level 24. Supratherapeutic. Decrease in dose warranted. Blood cultures show no growth. P: Patient is on Zosyn 4.5 g IV Q6H and vancomycin 1250 mg IV Q8H. Vancomycin ordered for pharmacy to dose. Decrease Vancomycin to 1250 mg IV Q12H. Vancomycin trough is drawn before the 4th dose on 04/10 @ 1630. Vancomycin goal trough is between 15-20 mcg/ml. Pharmacy will follow and or advise on antibiotics use as needed.
[2021-04-09 14:52] VITALS: BP 135/64
--- NOTE | 2021-04-09 15:50 | NUR ---
PT OOB RESTING IN RECLINER;RESPIRATIONS REMAIN EVEN AND UNLABORED ON RA;PT DENIES ANY CURRENT PAIN OR DISCOMFORTS;TELE MONITORING IN PLACE;IV SITE PATENT AND ABX STARTED AT THIS TIME;PT DENIES ANY ADDITIONAL NEEDS AND IS ENCOURAGED TO CALL FOR ASSISTANCE IF NEEDED;CALL LIGHT IN REACH;WILL CONTINUE TO MONITOR
--- NOTE | 2021-04-09 16:12 | NUR ---
PT note Patient presents up in bedside chair. He is able to perfrom sit to standin independently and is able to walk in the room x 50 feet x 2 limited by dyspnea. He required use of a FWW which he has at home. His AmPac score increased to 14 indicating he would do well with home health PT to address weakness and fall risk upon DC
[2021-04-09 19:00] VITALS: BP 158/67
[2021-04-10] VITALS: BP 154/70
--- NOTE | 2021-04-10 | NUR ---
PT LAYING IN RECLINER BED WITH EYES CLOSED, APPEARS TO BE SLEEPING, APPEARS COMFORTABLE AND IN NO DISTRESS. RESPIRATIONS REGULAR AND UNLABORED. ITEMS REMAIN WITHIN REACH, CALL DAWSON REMAINS WITHIN REACH. WILL CONTINUE TO MONITOR.
[2021-04-10 04:00] VITALS: BP 156/81
[2021-04-10 05:57] LABS: ANION GAP 12 (6-22 (CALC)); BUN 21 mg/dL (8-23); BUN/CREATININE RATIO 27 (12-20 (CALC)); CARBON DIOXIDE 36 mmol/l (22-30); CHLORIDE 94 mmol/l (95-108); CREATININE 0.8 mg/dL (0.7-1.3); GFR > 60 ML/MIN (>=60 (CALC)); GFR FOR AFR.AMER. > 60 ML/MIN (>=60 (CALC)); POTASSIUM 3.7 mmol/l (3.5-5.1); SODIUM 139 mmol/l (137-146)
[2021-04-10 07:45] VITALS: BP 127/67
--- NOTE | 2021-04-10 07:45 | NUR ---
PATIENT SITTING UP IN RECLINER AT THIS TIME PATIENT PRESENTS WITH 3+ EDEMA IN LOWER EXTERMITIES. PATIENT ALERT AND ORIENTED DENIES ANY PAIN LUNG DE LE[place] ARE DIMINISHED IN LOWER [place] LE[place]. NITROCELLULOSE MAKER DONE SEE INTERVENTIONS.
[2021-04-10 10:30] VITALS: BP 123/51
[2021-04-10] MEDS ORDERED: LOPRESSOR 550 MG/TAB PO (10:35)
[2021-04-10] MEDS ORDERED: MEDDOSEPAK PO (10:36)
[2021-04-10] MEDS ORDERED: DOXYCYCL HYC100 MG PO (10:38)
[2021-04-10] MEDS ORDERED: ELIQUIS5 MG PO (10:38)
[2021-04-10] MEDS ORDERED: POTASSIUM CHLO10 ME3 PO (10:39)
--- NOTE | 2021-04-10 11:56 | NUR ---
PATIENT D/C AT THIS TIME. IV REMOVED AND TIP IN PLACE. PATIENT VERBALIZES UNDERSTANDING OF D/C INSTRUCTIONS. TELE REMOVED AND ED CALLED AND NOTIFIED.
--- NOTE | 2021-04-10 12:59 | NUR ---
Discharge instructions given. Patient verbalizes understanding of same. Discharged in stable condition via Wheelchair to Home with family. All belongings sent with pt.
--- NOTE | 2021-04-10 15:42 | NUR ---
PT NOTE Pt seated in chaor as entered room, agreed to participate in therapy session. Sit>stand/stand>sit independant. Ambualted in room x 15 ft x 4, rest breaks for breathing exercises, no loss of balance noted, mod verbal cues for proper techniques for FWW, (CGA). Tray table and call duncan by patient side as exited room. [facility] 6 score of 14 home w/ physical therapy
== END 2021-04-10 13:00 | disposition home health service (06) | DRG 291 ==
LOC: ED 09:51 → ED-I 10:19 → ED 10:19 → ED-I 10:47 → ED 12:32 → ICU 12:33 → MS2 04-08 19:15
PROVIDERS: Family Medicine; Nurse Practitioner; ADMIT Internal Medicine; ATTEND Internal Medicine
DX: I11.0 Hypertensive heart disease with heart failure (principal); J18.9 Pneumonia, unspecified organism; J44.1 Chronic obstructive pulmonary disease with (acute) exacerbation; C64.9 Malignant neoplasm of unspecified kidney, except renal pelvis; C78.00 Secondary malignant neoplasm of unspecified lung; I48.92 Unspecified atrial flutter; J44.0 Chronic obstructive pulmonary disease with (acute) lower respiratory infection; I50.33 Acute on chronic diastolic (congestive) heart failure; I25.10 Atherosclerotic heart disease of native coronary artery without angina pectoris; N40.0 Benign prostatic hyperplasia without lower urinary tract symptoms; Z87.891 Personal history of nicotine dependence; Z79.899 Other long term (current) drug therapy; Z20.822 Contact with and (suspected) exposure to COVID-19
CPT/HCPCS: J1650; J3370